=== PATIENT | female | born 1940 | race Caucasian/White ===

== ENCOUNTER 2024-04-15 15:28 | Emergency (ER) | payer MEDICARE, SELFPAY ==
[2024-04-15 15:29] VITALS: BP 171/106
--- NOTE | 2024-04-15 16:12 | ED.GENMED ---
History of Present Illness
General
Chief Complaint: Eye Problems
Time Seen by Provider: 04/15/24 15:43
History of Present Illness
History of Present Illness:
83-year-old female with history of hypertension and hyperlipidemia presents to the emergency department for evaluation of left eye discomfort and blurry vision after accidentally spraying herself in the left eye with household bleach. The patient
has progressively worsened since injury. She did irrigate the eye copiously after the initial event. Does not wear contacts. History of cataract surgery
Past History
Past History
ED Past Medical History: HTN, Hypercholesterolemia and Other (Brain aneurysm)
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
Social History
Tobacco: Non-smoker
Alcohol: None
Living: with family
Family History
Family History: Other (She had a father who had a BRICK PITCHER aneurysm)
Review of Systems
Review of Systems
Allergies reviewed?: Yes
All Other Systems: ROS reviewed and negative except as documented in HPI and ROS
Phy Exam
Physical Exam
Physical Exam:
GEN: Well appearing, NAD, WDWN
HEENT: Oral mucosa moist, no scleral icterus. Moderate conjunctival injection of no hyphema or hypopyon. There is scattered focal fluorescein uptake central cornea compatible with keratitis/abrasion. Negative Ric sign. pH is 7.0 prior to
instillation of tetracaine or fluorescein. Visual acuity is OS 20/80, OD 20/20
Cardiac: Regular rate
Lung: No respiratory distress, no tachypnea
MSK: No gross deformity or injuries
Skin: Good color, no pallor or jaundice, no rashes
Neuro: AO x3, moves all extremities freely
Psych: Calm, cooperative
Course
Orders/Labs/Results
Orders:
Orders
04/15/24 16:20
Tetracaine HCl [Tetracaine 0.5% Ophthalmic Solution] 1 drop .ROUTE .[facility]
04/15/24 16:21
Fluorescein Sodium [Ful-Keyna] 1 mg .ROUTE .[facility]
Vital Signs
Initial and Last Documented VS:
Initial Vital Signs
Temp Pulse Resp BP Pulse Ox
98.9 F 79 16 171/106 99
04/15/24 15:29 04/15/24 15:29 04/15/24 15:29 04/15/24 15:29 04/15/24 15:29
Last Documented Vital Signs
Temp Pulse Resp BP Pulse Ox
98.9 F 79 16 171/106 99
04/15/24 15:29 04/15/24 15:29 04/15/24 15:29 04/15/24 15:29 04/15/24 15:29
MDM/Problems Addressed
MDM/Problems Addressed:
Evidence of corneal abrasion/chemical keratitis, pH is normal at this time, no indication for further irrigation. Will treat with topical antibiotics, as she has minimal pain there is no need for mydriatics at this time
*Critical Care Note
Total Time (30-74mins, 75-104mins- exclusive of procedures): Not Applicable
ED Attending Note
-
Portions of this chart may have been created with voice recognition software.� Occasional wrong word or��sound alike� substitutions may have occurred due to the inherent limitations of voice recognition software.
Discharge Plan
Departure
Patient Disposition: Home (Routine Discharge)
Date of Disposition: 04/15/24
Time of Disposition: 16:13
Patient with high blood pressure during this ER visit?: No
Discharge Problem:
Chemical keratitis
Instructions: Corneal Abrasion ED
Prescriptions:
New
erythromycin 5 mg/gram (0.5 %) ointment
1 applic ophthalmic (eye) QID 5 Days Qty: 7 0RF
No Action
levothyroxine 50 MCG tablet
50 mcg PO DAILY
simvastatin 20 MG tablet
20 mg PO HS
lisinopril 5 MG tablet
10 mg PO HS
sertraline 25 MG tablet
25 mg PO HS
Referrals:
Maite Hernandez PA [Family Provider] -
Interventions
Interventions:
*Risk Screen - Suicide Last Done: 04/15/24 15:29
*General Assessment Last Done: 04/15/24 15:29
*Neglect/Abuse Screening Last Done: 04/15/24 15:43
*ED COVID-19 Vaccine History Last Done: 04/15/24 15:29
*Nursing Disposition Last Done: 04/15/24 16:17
Discharge Date and Time
Discharge Date/Time: 04/15/24 16:17
Print Language: OCCITAN
== END 2024-04-15 16:17 | disposition home or self-care (01) ==
LOC: EMR 15:28
PROVIDERS: EMERGENCY PHYSICIAN Student in an Organized Health Care Education/Training Program; FAMILY PHYSICIAN Physician Assistant Medical
DX: H16.8 Other keratitis (principal); I10 Essential (primary) hypertension; E78.00 Pure hypercholesterolemia, unspecified
CPT/HCPCS: 99283